=== PATIENT | male | born 1960 | race Caucasian/White ===

== ENCOUNTER → 2020-04-22 07:49 | Outpatient (BNVA) | payer OTHER, SELFPAY | PROVIDERS: Family Provider Family Medicine; PCP Family Medicine; Visit Provider Urology | DX: N50.89 Other specified disorders of the male genital organs (principal); N52.9 Male erectile dysfunction, unspecified; N48.6 Induration penis plastica | CPT/HCPCS: 81001 ==

== ENCOUNTER → 2021-04-27 07:47 | Outpatient (BNVA) | payer OTHER, SELFPAY | PROVIDERS: Family Provider Family Medicine; PCP Family Medicine; Visit Provider Urology | DX: N52.9 Male erectile dysfunction, unspecified (principal); N52.1 Erectile dysfunction due to diseases classified elsewhere; N48.6 Induration penis plastica | CPT/HCPCS: 81003 ==

== ENCOUNTER 2021-09-21 15:26 | Outpatient (CLI) | payer OTHER, SELFPAY ==
--- NOTE | 2021-09-21 | CTR_ITS ---
PROCEDURE INFORMATION: Exam: CTA Chest With Contrast Exam date and time: 09/21/2021 4:14 PM Age: 61 years old Clinical indication: Shortness of breath; Additional info: Perez, MARCUS since knee surgery on 09/15/21 TECHNIQUE: Imaging protocol: Computed tomographic angiography of the chest with contrast. 3D rendering (Not supervised by radiologist): MIP and/or 3D reconstructed images were created by the technologist. Total images: 933 Radiation optimization: All CT scans at this facility use at least one of these dose optimization techniques: automated exposure control; mA and/or kV adjustment per patient size (includes targeted exams where dose is matched to clinical indication); or iterative reconstruction. Contrast material: OMNI 350; Contrast volume: 52 ml; Contrast route: INTRAVENOUS (IV); COMPARISON: No relevant prior studies available. RADIATION DOSE METRICS: Total DLP (mGy-cm): 615.51 FINDINGS: Pulmonary arteries: No visible evidence of pulmonary embolism/pulmonary arterial thrombus. Aorta: The thoracic aorta is nonaneurysmal. No visible intimal flap or dissection. Bovine aortic arch which is a normal anatomical variant. Lungs: No visible active interstitial or alveolar airspace disease. Rare calcified granuloma of antecedent disease. Pleural spaces: No pneumothorax. No pleural effusion. Heart: Mild cardiomegaly. No visible pericardial effusion. Left ventricular prominence. No visible significant coronary artery disease. Lymph nodes: No definitive evidence of active mediastinal or hilar lymphadenopathy. Calcified complexes of antecedent granulomatous disease. Diaphragm: Small hiatal hernia. Bones/joints: No visible active or acute osseous pathology. Mild scoliotic curvature of the spine. 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 Soft tissues: Mild male gynecomastia. CT/CT angio chest PE protcl [id number] IMPRESSION: No visible evidence of pulmonary embolism/pulmonary arterial thrombus.
[2021-09-21 16:24] LABS: Blood Urea Nitrogen 13 mg/dL (8-23); Glomerular Filtration Rate 85.2 mL/min (90-130)
[2021-09-21] MEDS: iohexol 350 mg/mL 100 mL Btl IV (17:09)
== END 2021-09-21 15:27 | disposition home or self-care (01) ==
PROVIDERS: PCP Family Medicine; Visit Provider Family Medicine
DX: R07.9 Chest pain, unspecified (principal); R06.00 Dyspnea, unspecified; R06.02 Shortness of breath
CPT/HCPCS: 71275; 82565; 84520

== ENCOUNTER → 2022-12-29 07:59 | Outpatient (BNVA) | payer OTHER, SELFPAY | PROVIDERS: PCP Family Medicine; Visit Provider Family Medicine | DX: R79.89 Other specified abnormal findings of blood chemistry (principal); Z12.5 Encounter for screening for malignant neoplasm of prostate | CPT/HCPCS: 84403; G0103 ==

== ENCOUNTER 2023-02-27 14:37 | Outpatient (CLI) | payer OTHER, SELFPAY ==
--- NOTE | 2023-02-27 15:00 | CT_ITS ---
WS: [id number] CTA THORACIC TECHNIQUE: Contrast enhanced CTA of the thoracic aorta with coronal and sagittal reformatted images a nd maximum intensity projection (MIP) images. CLINICAL INFORMATION: AAA COMPARISON: CTA chest September 21, 2021 DLP: 904.[address] scans at [facility] use at least one of these dose optimization techniques: automated e xposure control; mA and/or kV adjustment per patient size (includes targeted exams where dose is matc hed to clinical indication); or iterative reconstruction. FINDINGS: Ascending thoracic aorta measures 3.6 cm in maximum dimension. This is unchanged since the prior CTa chest Normal aortic arch. Normal caliber descending thoracic aorta. Normal pulmonary arteries. Lungs well aerated. No acute pulmonary infiltrates. No focal pneumonia or pleural fluid. Subsegmental atele ctasis in the lingula. Prior cholecystectomy clips. Small esophageal hiatal hernia. Adrenal glands are normal. Celiac and SM A are patent. Normal thyroid gland. No mediastinal or hilar lymphadenopathy. No axillary lymphadenopathy. Ankylosis thoracic spine. Mild thoracic curve. CT/CT angio chest [id number] IMPRESSION: 1. Normal caliber ascending thoracic aorta measuring 3.6 cm in maximum dimensi on is unchanged. Normal caliber descending thoracic aorta. 2. No mediastinal or hilar lymphadenopathy. 3. Small esophageal hiatal hernia. 4. Cholecystectomy clips.
[2023-02-27 15:18] LABS: Glomerular Filtration Rate 84.7 mL/min (90-130)
[2023-02-27] MEDS: iohexol 350 mg/mL 500 mL Btl (per mL) IV (15:27)
== END 2023-02-27 14:38 | disposition home or self-care (01) ==
LOC: RAD 14:42
PROVIDERS: PCP Family Medicine; Visit Provider Family Medicine
DX: I71.21 Aneurysm of the ascending aorta, without rupture (principal); K46.9 Unspecified abdominal hernia without obstruction or gangrene; Z90.49 Acquired absence of other specified parts of digestive tract
CPT/HCPCS: 71275; 82565; Q9967

== ENCOUNTER 2023-09-11 14:14 | Outpatient (CLI) | payer OTHER, SELFPAY ==
--- NOTE | 2023-09-11 14:20 | MR_ITS ---
WS: [id number] MRI HEAD WITH CONTRAST WITH ATTENTION TO THE INTERNAL AUDITORY CANALS TECHNIQUE: Sagittal T1, T2 axial, T2 axial flair, axial susceptibility weighted imaging, axial diffus ion weighted images, and coronal T2 images were obtained. Pre and post T1 axial and post T1 coronal i mages. ADC and FSPGR images. Post gadolinium images with attention to the internal auditory canals. A xial fiesta imaging. CLINICAL INFORMATION: SENSORINEURAL HEARING LOSS,BILATERAL COMPARISON: CT head 2018 FINDINGS: No evidence of restricted diffusion to suggest acute ischemia. Ventricular system and basilar cistern s are patent. Mild small vessel changes. Mild to moderate parenchymal volume loss. Normal posterior f eliu. Normal vascular flow voids at the skull base. No extra-axial fluid collections. No evidence of mass or mass effect. Mild mucosal thickening in the paranasal sinuses. Normal posterior nasopharynx. 2.1 cm retention cyst or polyp RIGHT maxillary sinus. No hemosiderin on the susceptibly weighted imaging. Temporal lobes and hippocampal formations appear normal. Proximal 7th and 8th cranial nerves are normal in appearance. Normal trigeminal nerve root entry zone s. No evidence of enhancing IAC or CP angle mass. No abnormal intracranial enhancement. Normal dural venous sinuses. IMPRESSION: 1. No evidence of restricted diffusion to suggest acute ischemia. 2. Mild small vessel changes. Mild to moderate parenchymal volume loss. 3. No evidence of enhancing IAC or CP angle mass. Normal trigeminal nerve root entry zones. 4. Retention cyst or polyp RIGHT maxillary sinus measuring 2.1 cm. 5. Mastoid air cells are well aerated. 6. No other suspicious findings.
[2023-09-11] MEDS: gadobenate dimeglumine 20 mL vial IV (15:15)
== END 2023-09-11 14:15 | disposition home or self-care (01) ==
LOC: RAD 14:14
PROVIDERS: PCP Family Medicine; Visit Provider Specialist
DX: H90.3 Sensorineural hearing loss, bilateral (principal)
CPT/HCPCS: 70553; A9577

== ENCOUNTER 2024-04-22 15:30 | Outpatient (CLI) | payer OTHER, SELFPAY ==
--- NOTE | 2024-04-22 15:45 | CT_ITS ---
WS: [id number] CTA THORACIC AORTA WITH AND WITHOUT CONTRAST HISTORY: f/u on small ascending aortic aneurysm TECHNIQUE: CT imaging of the thorax is performed with and without contrast. After noncontrast imaging is performed, CT angiogram is performed during injection of Omnipaque 350; 100 mL IV.. Sagittal and coronal reconstructions, sagittal and coronal MIP imaging is submitted. All CT scans at [facility] use at least one of these dose optimization techniques: automated exposure control; mA and/or k V adjustment per patient size (includes targeted exams where dose is matched to clinical indication); or iterative reconstruction. DLP: 1041.08 mGy.cm COMPARISON: 02/27/2023 Good opacification thoracic aorta. Normal ascending aorta. Maximum transverse diameter of the ascendi ng aorta is 3.6 cm. Annular root and sinotubular junction are normal. Descending and aortic arch are normal. There is a bovine arch. There is no dissection or significant atherosclerotic plaque. Normal size pulmonary artery. No filling defects or pulmonary embolism. Heart size is normal. No sherine cardial or pleural effusions. No mediastinal or hilar adenopathy. Visualized thyroid and chest wall a re normal. Normal adrenal glands. Mild hepatic steatosis. No destructive bone lesions. CT/CT angio chest [id number] IMPRESSION: 1. Normal ascending aorta. No aneurysm. No interval change or progression sinc e 09/21/2021. 2. Bovine arch. 3. No pulmonary mass.
[2024-04-22 16:26] LABS: Blood Urea Nitrogen 17 mg/dL (8-23); Glomerular Filtration Rate 84.4 mL/min (90-130)
[2024-04-22] MEDS: iohexol 350 mg/mL 500 mL Btl (per mL) IV (17:01)
== END 2024-04-22 15:31 | disposition home or self-care (01) ==
LOC: RAD 15:36
PROVIDERS: PCP Family Medicine; Visit Provider Family Medicine
DX: I71.21 Aneurysm of the ascending aorta, without rupture (principal); Q25.49 Other congenital malformations of aorta
CPT/HCPCS: 71275; 82565; 84520; Q9967

== ENCOUNTER 2024-04-23 14:14 | Outpatient (CLI) | payer OTHER, SELFPAY ==
--- NOTE | 2024-04-23 14:26 | XR_ITS ---
WS: [id number] XR lumbar spine 2-3V* [id number] REASON FOR EXAM: back pain FINDINGS: Mild rotatory dextroscoliosis of the lumbar spine. Mild straightening of the normal lordosis. Mild biconcave compression deformities of L2-L4. There is mild narrowing of the L4-L5 and L5-S1 disc space. There is moderate partially bridging osteophytosis from L1-L5. No significant listhesis is identified. Mild to moderate degenerative arthropathy in the facet joints L4-S1. XR/XR lumbar spine 2-3V* [id number] IMPRESSION: Degenerative spondylosis of the lumbar spine as above.
== END 2024-04-23 14:15 | disposition home or self-care (01) ==
PROVIDERS: PCP Family Medicine; Visit Provider Family Medicine
DX: M47.896 Other spondylosis, lumbar region (principal); M47.898 Other spondylosis, sacral and sacrococcygeal region; M25.78 Osteophyte, vertebrae
CPT/HCPCS: 72100

== ENCOUNTER → 2024-10-08 07:53 | Outpatient (BNVA) | payer OTHER, SELFPAY | PROVIDERS: PCP Family Medicine; Visit Provider Family Medicine | DX: Z00.00 Encounter for general adult medical examination without abnormal findings (principal) | CPT/HCPCS: 80053; 80061; 83036; 84153; 85025 ==

== ENCOUNTER → 2025-01-07 07:48 | Outpatient (BNVA) | payer OTHER, SELFPAY | PROVIDERS: PCP Family Medicine; Visit Provider Family Medicine | DX: I10 Essential (primary) hypertension (principal); R73.03 Prediabetes; R97.20 Elevated prostate specific antigen [PSA] | CPT/HCPCS: 80053; 80061; 83036; 84153; 85025 ==

== ENCOUNTER → 2025-02-06 07:28 | Outpatient (BNVA) | payer OTHER, SELFPAY | PROVIDERS: PCP Family Medicine; Visit Provider Family Medicine | DX: N52.1 Erectile dysfunction due to diseases classified elsewhere (principal) | CPT/HCPCS: 84403; 85025 ==

== ENCOUNTER 2025-04-06 12:42 | Outpatient (CLI) | payer OTHER, SELFPAY ==
--- NOTE | 2025-04-06 12:45 | CT_ITS ---
WS: [id number] CT LUMBAR SPINE, noncontrast. HISTORY: CLOSE COMPRESSION FRACTURE OF L4 VERTEBRA, INITIAL TECHNIQUE: Contiguous 2.0 mm axial imaging are performed. Sagittal and coronal reformats are submitted and reviewed. All CT scans at [facility] use at least one of these dose optimization techniques: automated exposure control; mA and/or kV adjustment per patient size (includes targeted exams where dose is matched to clinical indication); or iterative reconstruction. IV contrast: None DLP: 1173.50 mGy.cm COMPARISON: 04/06/2025 radiograph. Mild curvature lumbar spine. Posterior alignment is normal. Biconcave endplates of L2. No acute fracture identified. This may be from a remote fracture. Schmorl's node defect at L4 involving the inferior endplate. Moderate-sized hypertrophic osteophytes extend anteriorly. No retropulsion of the vertebral bodies. L1-2: Diffuse annular disc bulging with osteophytic ridging. Facet arthritis. Mild central, bilateral subarticular recess and foraminal stenosis. L2-3: Diffuse osteophytic ridging, facet and mild ligamentum flavum hypertrophy. Mild central, bilateral subarticular recess and foraminal stenosis. L3-4: Mild annular disc bulging with osteophytic ridging. Ligamentum flavum and facet arthritis. Mild to moderate central with mild RIGHT and moderate LEFT foraminal stenosis. L4-5: Diffuse annular disc bulging, osteophytic ridging and facet arthritis. Moderate central and subarticular recess stenosis and bilateral foraminal stenosis. L5-S1: Small central disc protrusion. Mild facet arthritis. Mild foraminal stenosis. Nondisplaced LEFT transverse process fracture L2, L3 and L4. No spinous process fracture. No sacral fracture identified. No soft tissue contusions. Visualized retroperitoneum is normal. CT/CT lumbar spine wo con* [id number] IMPRESSION: 1. Nondisplaced LEFT L2, L3 and L4 transverse process fractures. 2. No vertebral body fractures. Mild concave deformity of L2 appears very ranch[place] in shape to prior lumbar spine radiographs. No fracture identified. Clinica lly if further evaluation is thought necessary MRI lumbar spine could be perfo rmed to evaluate for subtle areas of marrow edema. 3. Facet joint arthropathy. 4. Multilevel areas of central, foraminal and subarticular recess stenosis as above. No high-grade central stenosis.
== END 2025-04-06 12:43 | disposition home or self-care (01) ==
LOC: RAD 12:45
PROVIDERS: PCP Family Medicine; Visit Provider Family Medicine
DX: S32.040A Wedge compression fracture of fourth lumbar vertebra, initial encounter for closed fracture (principal); S32.020A Wedge compression fracture of second lumbar vertebra, initial encounter for closed fracture; S32.030A Wedge compression fracture of third lumbar vertebra, initial encounter for closed fracture; X58.XXXA Exposure to other specified factors, initial encounter; M43.8X6 Other specified deforming dorsopathies, lumbar region; M47.816 Spondylosis without myelopathy or radiculopathy, lumbar region; M51.27 Other intervertebral disc displacement, lumbosacral region; M25.78 Osteophyte, vertebrae; M48.07 Spinal stenosis, lumbosacral region; M48.061 Spinal stenosis, lumbar region without neurogenic claudication
CPT/HCPCS: 72131

== ENCOUNTER → 2025-04-28 07:44 | Outpatient (BNVA) | payer OTHER, SELFPAY | PROVIDERS: PCP Family Medicine; Visit Provider Family Medicine | DX: N52.1 Erectile dysfunction due to diseases classified elsewhere (principal); N50.89 Other specified disorders of the male genital organs; N18.9 Chronic kidney disease, unspecified | CPT/HCPCS: 84403; 85025 ==

== ENCOUNTER → 2025-05-08 07:44 | Outpatient (BNVA) | payer OTHER, SELFPAY | PROVIDERS: PCP Family Medicine; Visit Provider Family Medicine | DX: R79.89 Other specified abnormal findings of blood chemistry (principal) | CPT/HCPCS: 84403 ==

== ENCOUNTER → 2025-08-24 12:12 | Outpatient (BNVA) | payer OTHER, SELFPAY | PROVIDERS: PCP Family Medicine; Visit Provider Family Medicine | DX: Z00.00 Encounter for general adult medical examination without abnormal findings (principal); Z51.81 Encounter for therapeutic drug level monitoring; N52.1 Erectile dysfunction due to diseases classified elsewhere; E78.5 Hyperlipidemia, unspecified | CPT/HCPCS: 80053; 80061; 83036; 84402; 85025; G0103 ==